=== PATIENT | male | born 1945 | race Caucasian/White ===

== ENCOUNTER 2018-06-03 12:39 | Emergency (ER) | payer MEDICARE ==
--- NOTE | 2018-06-03 13:15 | EDM.PDOC ---
ED HPI GENERAL MEDICAL PROBLEM - General Chief Complaint: Neuro Symptoms/Deficits Stated Complaint: BLURRED VISION Time Seen by Provider: 06/03/18 12:48 Source of Information: Reports: Patient, RN, RN Notes Reviewed History Limitations: Reports: No Limitations - History of Present Illness INITIAL COMMENTS - FREE TEXT/NARRATIVE: Patient presents the emergency room at [facility] complaining of blurry vision. The patient states his symptoms started suddenly around 11 AM. The patient had hernia surgery yesterday and had a subcutaneous pain pump placed. The medication in the pump is Marcaine. The patient was told that a side effect of Marcaine could be blurry vision. The patient states that his vision seemed tunneled, colorful, as if he was looking through a kaleidoscope. Patient denies any other neurological deficits. The patient did talk to a nurse at [facility] who felt he needed to be checked out a little further. The patient does not have any chest pain or shortness of breath. The patient denies any problems with ambulation. No ataxia. The patient has not had any previous vision problems. The patient has not had any previous eye surgeries. The patient is wondering if he could be having a side effect of the Marcaine. Otherwise no other concerns today. Onset: Today, Sudden Onset Date: 06/03/18 Onset Time: 11:00 Right Groin Pain Score (Numeric/FACES): 6 - Related Data Allergies Allergy/AdvReac Type Severity Reaction Status Date / Time No Known Drug Allergies Allergy Other Verified 06/03/18 12:58 Home Meds: Home Meds Acetaminophen/HYDROcodone [Brilliant 325-5 MG] 1 tab PO Q4H PRN 06/03/18 [History] Ascorbic Acid 500 mg PO DAILY 06/03/18 [History] Aspirin 81 mg PO DAILY 06/03/18 [History] Docusate Sodium [Colace] 100 mg PO BID 06/03/18 [History] Lisinopril [Prinivil] 10 mg PO DAILY 06/03/18 [History] Tamsulosin HCl [Flomax] 0.4 mg PO DAILY 06/03/18 [History] atorvaSTATin [Lipitor] 40 mg PO BEDTIME 06/03/18 [History] ED ROS GENERAL - Review of Systems Review Of Systems: See Below Constitutional: Denies: Fever, Chills HEENT: Reports: Vision Change Respiratory: Denies: Shortness of Breath, Cough Cardiovascular: Denies: Chest Pain, Palpitations Skin: Reports: No Symptoms Neurological: Denies: Confusion, Dizziness, Headache, Paresthesia, Syncope, Trouble Speaking, Difficulty Walking, Weakness, Change in Speech ED EXAM, NEURO - Physical Exam Exam: See Below Exam Limited By: No Limitations General Appearance: Alert, No Apparent Distress Eye Exam: Bilateral Eye: EOMI, Normal Inspection, PERRL Head Exam: Atraumatic, Normocephalic Neck: Supple Respiratory/Chest: No Respiratory Distress, Lungs Clear, Normal Breath Sounds Cardiovascular: Normal Peripheral Pulses, Regular Rate, Rhythm Neurological: Alert, CN II-XII Intact, No Motor/Sensory Deficits, Oriented x 3 Skin Exam: Warm, Dry, Intact, Normal Color Course - Vital Signs Last Recorded V/S: Last Vital Signs Temp 36.5 C 06/03/18 12:45 Pulse 86 06/03/18 12:45 Resp 18 06/03/18 12:45 BP 169/95 H 06/03/18 12:45 Pulse Ox 98 06/03/18 12:45 - Orders/Labs/Meds Orders: Active Orders 24 hr Category Date Time Status BASIC METABOLIC PANEL,BMP [CHEM] Stat Lab 06/03/18 13:25 Received Labs: Laboratory Tests 06/03/18 Range/Units 13:25 WBC 8.8 (4.0-10.0) x10^3/uL RBC 5.12 (4.5-6.0) x10^6/uL Hgb 14.7 (14.0-18.0) g/dL Hct 44.0 (40.0-52.0) % MCV 85.9 (78.0-93.0) fL MCH 28.7 (26.0-32.0) pg MCHC 33.4 (32.0-36.0) g/dL RDW Coeff of Raj 14.1 (10.0-15.0) % Plt Count 215 (130-400) x10^3/uL Neut % (Auto) 80.6 H (50.0-80.0) % Lymph % (Auto) 10.1 L (25.0-50.0) % [place] % (Auto) 8.5 (2.0-11.0) % Eos % (Auto) 0.7 (0.0-4.0) % Baso % (Auto) 0.1 L (0.2-1.2) % - Radiology Interpretation Free Text/Narrative:: CT Head: Negative examination of the brain See scanned report in EMR for details CT Results Date: 06/03/18 CT Results Time: 13:41 Departure - Departure Time of Disposition: 13:52 Disposition: Home, Self-Care 01 Condition: Good Clinical Impression: Changes in vision - Discharge Information *PRESCRIPTION DRUG MONITORING PROGRAM REVIEWED*: Not Applicable *COPY OF PRESCRIPTION DRUG MONITORING REPORT IN PATIENT COMPA: Not Applicable Referrals: Kenisha Gr NP [Primary Care Provider] - Forms: ED Department Discharge Additional Instructions: 1. Stay well hydrated and rest 2. Labs and CT scan were all normal 3. Recommend talking with the provider regarding the Marcaine pump; may need to have it out sooner 4. See your PCP as symptoms warrant 5. Call with any questions or concerns - Problem List Review Problem List Initiated/Reviewed/Updated: Yes - My Orders Last 24 Hours: My Active Orders 06/03/18 13:25 BASIC METABOLIC PANEL,BMP [CHEM] Stat - Assessment/Plan Last 24 Hours: My Active Orders 06/03/18 13:25 BASIC METABOLIC PANEL,BMP [CHEM] Stat Assessment:: Vision changes with unknown etiology, possibly from Marcaine Plan: Labs and CT discussed. No acute emergency found. I would recommend the patient talk with the nurse/provider that put in the Marcaine pump and let them know his symptoms. Patient may need the to discontinue the Marcaine pump early. Patient was discharged in stable condition.
[2018-06-03 13:45] LABS: CHLORIDE,CL 101 mmol/L (98-107); SODIUM,NA 139 mmol/L (136-145)
--- NOTE | 2018-06-03 13:46 | CT ---
[id number] CT/CT Head WO IV EXAM: CT Head WO IV CLINICAL DATA: SUDDEN ONSET BLURRY VISION. COMPARISON STUDY: May 2010. FINDINGS: No intracranial hemorrhage, extra-axial fluid collection, mass, or acute ischemia. No hydrocephalus. Paranasal sinuses and mastoid air cells are clear. IMPRESSION: Negative examination of the brain. Aaron Moody MD 06/03/18 [id number] Thank you for allowing us to participate in the care of your patient.
[2018-06-03 13:51] LABS: ANION GAP 15.3 mmol/L (10-20)
== END 2018-06-03 14:00 | disposition home or self-care (01) ==
LOC: VM.ED 12:39
DX: H53.8 Other visual disturbances (principal); Z79.82 Long term (current) use of aspirin; Z79.899 Other long term (current) drug therapy
CPT/HCPCS: 36415; 70450; 80048; 85025; 99284-25

== ENCOUNTER 2023-12-04 20:06 | Emergency (ER) | payer MEDICARE ==
[2023-12-04 21:02] LABS: BASOPHILS ABSOLUTE AUTO 0.1 x10^3/uL (0.0-0.2); BASOPHILS PERCENT AUTO 0.8 % (0.2-1.2); EOSINOPHILS ABSOLUTE AUTO 0.4 x10^3/uL (0.0-0.5); EOSINOPHILS PERCENT AUTO 5.3 % (0.0-4.0); HEMOGLOBIN 13.9 g/dL (14.0-18.0); IMMATURE GRAN ABSOLUTE AUTO 0.01 x10^3/uL (0.00-0.07); LYMPHOCYTES ABSOLUTE AUTO 1.1 x10^3/uL (1.0-4.8); LYMPHOCYTES PERCENT AUTO 17.1 % (25.0-50.0); MEAN CORPUSCULAR HEMOGLOBIN 29.6 pg (26.0-32.0); MEAN CORPUSCULAR HGB CONC 34.8 g/dL (32.0-36.0); MEAN CORPUSCULAR VOLUME 85.3 fL (78.0-93.0); MONOCYTES ABSOLUTE AUTO 0.5 x10^3/uL (0.0-0.8); MONOCYTES PERCENT AUTO 7.9 % (2.0-11.0); NEUTROPHILS ABSOLUTE AUTO 4.5 x10^3/uL (1.8-7.7); NEUTROPHILS PERCENT AUTO 68.7 % (50.0-80.0); PLATELET COUNT,PLT 186 x10^3/uL (130-400); RED BLOOD CELL COUNT 4.69 x10^6/uL (4.5-6.0); WHITE BLOOD CELL COUNT,WBC 6.6 x10^3/uL (4.0-10.0)
[2023-12-04 21:20] LABS: A/G RATIO 1.34; ALANINE AMINOTRANSFERASE,ALT 43 U/L (16-63); ALBUMIN 3.9 g/dL (3.4-5.0); ALKALINE PHOSPHATASE 83 U/L (46-116); ASPARTATE AMNIOTRANSFERASE,AST 24 U/L (15-37); BILIRUBIN TOTAL 0.4 mg/dL (0.2-1.0); BLOOD UREA NITROGEN,BUN 11 mg/dL (7-18); CALCIUM 8.9 mg/dL (8.5-10.1); CARBON DIOXIDE,CO2 25 mmol/L (21-32); CHLORIDE,CL 103 mmol/L (98-107); CREATININE 1.1 mg/dL (0.70-1.30); GLUCOSE RANDOM 88 mg/dL (70-99); POTASSIUM,K 4.2 mmol/L (3.5-5.1); PROTEIN TOTAL,TP 6.8 g/dL (6.4-8.2); SODIUM,NA 138 mmol/L (136-145)
[2023-12-04 21:21] LABS: ANION GAP 14.2 mmol/L (5-15); ESTIMATED GFR 69 mL/min (>=60)
== END 2023-12-04 21:45 | disposition home or self-care (01) ==
LOC: VM.ED 20:06
DX: R42 Dizziness and giddiness (principal); I10 Essential (primary) hypertension; E78.00 Pure hypercholesterolemia, unspecified; Z79.82 Long term (current) use of aspirin; Z79.899 Other long term (current) drug therapy
CPT/HCPCS: 36415; 70450; 80053; 85025; 93005; 93010; 99284

== ENCOUNTER 2024-06-23 13:33 | Emergency (ER) | payer MEDICARE ==
[2024-06-23] MEDS ORDERED: Sodium Chloride 0.9% 10 ML Syringe FLUSH PRN (13:48)
[2024-06-23 14:30] LABS: BASOPHILS PERCENT AUTO 0.4 % (0.2-1.2); EOSINOPHILS ABSOLUTE AUTO 0.3 x10^3/uL (0.0-0.5); HEMATOCRIT 41.1 % (40.0-52.0); HEMOGLOBIN 14.2 g/dL (14.0-18.0); IMMATURE GRAN ABSOLUTE AUTO 0.02 x10^3/uL (0.00-0.07); LYMPHOCYTES ABSOLUTE AUTO 1.1 x10^3/uL (1.0-4.8); MEAN CORPUSCULAR HEMOGLOBIN 29.3 pg (26.0-32.0); MEAN CORPUSCULAR HGB CONC 34.5 g/dL (32.0-36.0); MEAN CORPUSCULAR VOLUME 84.9 fL (78.0-93.0); MONOCYTES ABSOLUTE AUTO 0.5 x10^3/uL (0.0-0.8); MONOCYTES PERCENT AUTO 7.6 % (2.0-11.0); NEUTROPHILS ABSOLUTE AUTO 4.8 x10^3/uL (1.8-7.7); NEUTROPHILS PERCENT AUTO 70.7 % (50.0-80.0); PLATELET COUNT,PLT 202 x10^3/uL (130-400); RED BLOOD CELL COUNT 4.84 x10^6/uL (4.5-6.0); WHITE BLOOD CELL COUNT,WBC 6.8 x10^3/uL (4.0-10.0)
[2024-06-23 14:48] LABS: PROTHROMBIN TIME 10.3 SEC (9.6-12.0); PTT,PARTIAL THROMBOPLSTIN TIME 26.6 SEC (23.5-33.2)
[2024-06-23 14:51] LABS: A/G RATIO 1.2; ALBUMIN 3.6 g/dL (3.4-5.0); BILIRUBIN TOTAL 0.3 mg/dL (0.2-1.0); CALCIUM 8.7 mg/dL (8.5-10.1); CREATININE 1.1 mg/dL (0.70-1.30); EST CRCL DRUG DOSING (CG) 52.58 mL/min; POTASSIUM,K 4.2 mmol/L (3.5-5.1); PROTEIN TOTAL,TP 6.6 g/dL (6.4-8.2)
[2024-06-23 14:53] LABS: ANION GAP 10.2 mmol/L (5-15)
== END 2024-06-23 15:30 | disposition home or self-care (01) ==
LOC: VM.ED 13:33
DX: H53.9 Unspecified visual disturbance (principal); I10 Essential (primary) hypertension; E78.00 Pure hypercholesterolemia, unspecified; Z79.899 Other long term (current) drug therapy; Z79.82 Long term (current) use of aspirin
CPT/HCPCS: 70450; 80053; 85025; 85610; 85730; 99284